=== PATIENT | male | born 1950 | race Caucasian/White ===

== ENCOUNTER 2017-12-08 12:03 | Inpatient (IN) | payer OTHER, MEDICARE ==
[~2017-12-08] VITALS: Ht 167.6 cm; Wt 122.6 kg
[2017-12-08] MEDS ORDERED: ELIQUIS5 MG PO (13:53)
[2017-12-08] MEDS ORDERED: ALLO300 PO (13:53)
[2017-12-08] MEDS ORDERED: ASCO500 PO (13:54)
[2017-12-08] MEDS ORDERED: ASPI81CH PO (13:54)
[2017-12-08] MEDS ORDERED: ATOR40TA PO (13:55)
[2017-12-08] MEDS ORDERED: FINA5 (13:56)
[2017-12-08] MEDS ORDERED: FISH OIL 1,0001 EAC1 PO (13:56)
[2017-12-08] MEDS ORDERED: GABA300 PO (13:57)
[2017-12-08] MEDS ORDERED: FLAX PO (13:57)
[2017-12-08] MEDS ORDERED: HUMULIN N100 UNIT/1 SC (13:59)
[2017-12-08] MEDS ORDERED: Novolog100 UNIT/1 (14:01)
[2017-12-08] MEDS ORDERED: METF500 (14:05)
[2017-12-08] MEDS ORDERED: OXYC5 (14:08)
[2017-12-08] MEDS ORDERED: SERT100 (14:10)
[2017-12-08 14:33] LABS: BASOPHILS ABSOLUTE AUTO 0.04 K/mm3 (0.00-0.23); BASOPHILS PERCENT AUTO 0 % (0-2); EOSINOPHILS ABSOLUTE AUTO 0.01 K/mm3 (0.00-0.68); EOSINOPHILS PERCENT AUTO 0 % (0-6); Hematocrit 45.5 % (37.0-53.0); IMMATURE GRAN ABSOLUTE AUTO 0.07 K/mm3 (0.00-0.10); IMMATURE GRAN PERCENT AUTO 1 % (0-1); LYMPHOCYTES ABSOLUTE AUTO 0.51 K/mm3 (0.84-5.20); LYMPHOCYTES PERCENT AUTO 3 % (21-46); MONOCYTES ABSOLUTE AUTO 0.87 K/mm3 (0.16-1.47); MONOCYTES PERCENT AUTO 6 % (4-13); Mean Corpuscular HGB 28.6 pg (26.0-34.0); Mean Corpuscular Volume 87 fL (80-100); Mean Platelet Volume 9.4 fL (9.1-12.4); NEUTROPHILS ABSOLUTE AUTO 13.38 K/mm3 (1.96-9.15); NEUTROPHILS PERCENT AUTO 90 % (41-73); Platelet Count 250 K/mm3 (150-400); RDW Coefficient Variation 13.6 % (11.7-14.2); RDW Standard Deviation 42.7 fL (35.1-46.3); Red Blood Cell Count 5.24 M/mm3 (4.30-5.90); White Blood Cell Count 14.88 K/mm3 (4.00-11.30)
[2017-12-08 14:45] LABS: International Normalized Ratio 0.96
[2017-12-08 15:45] LABS: Alanine Aminotransfer (ALT/SGP 41 U/L (12-78); Albumin, Blood 3.4 g/dL (3.4-5.0); Albumin/Globulin Ratio 0.8 (0.8-1.8); Alk Phos 278 U/L (50-136); Anion Gap 12 mmol/L (6-16); Aspartate Aminotrans (AST/SGOT 25 U/L (12-37); Bilirubin, Total 0.7 mg/dL (0.1-1.0); Blood Urea Nitrogen 33 mg/dL (8-24); Bun/Creatinine Ratio 33.4 (12.0-20.0); CO2, Blood 16 mmol/L (21-32); Calcium, Blood 8.7 mg/dL (8.5-10.1); Chloride, Blood 103 mmol/L (98-108); Creatinine, Blood 0.99 mg/dL (0.60-1.20); Glomerular Filtration Rate >60 (60-); Glucose, Blood 393 mg/dL (70-99); Sodium, Blood 131 mmol/L (136-145); Total Protein, Blood 7.4 g/dL (6.4-8.2)
[2017-12-08 15:46] LABS: Potassium, Blood 6.5 mmol/L (3.5-5.5)
[2017-12-08] MEDS ORDERED: Humulin N100 UNIT/1 SC (16:51)
[2017-12-08] MEDS ORDERED: LIRA0.6P SC (16:53)
[2017-12-08] MEDS ORDERED: Hair, Skin & N1 EACH PO (16:55)
[2017-12-08] MEDS ORDERED: Cholestyramine R5 GM PO (16:56)
[2017-12-08] MEDS ORDERED: LOPE2C PO (17:01)
[2017-12-08] MEDS ORDERED: TEMA15 PO (17:02)
[2017-12-08 20:48] LABS: Source, Urine Voided
[2017-12-08 20:51] LABS: Blood, Urine Neg (Neg); Glucose Qualitative, Urine 3+ (Neg); Ketones, Urine Neg (Neg); Leukocyte Esterase, Urine 1+ (Neg); Nitrite, Urine Neg (Neg); Protein, Urine 2+ (Neg); Urobilinogen, Urine NORM (Normal)
[2017-12-08 21:09] LABS: Appearance, Urine Clear (Clear); Bilirubin, Urine 1+ (Neg); Color, Urine Yellow (P-Yellow); White Blood Cells, Urine Rare /hpf (0-5)
[2017-12-08 21:10] LABS: Bacteria Rare /hpf; Red Blood Cells, Urine Not Seen /hpf (0-2); Squamous Epithelial Cells Few /hpf (Few)
[2017-12-09 05:41] LABS: Hematocrit 46.1 % (37.0-53.0); Hemoglobin 15.1 g/dL (13.5-17.5); Mean Corpuscular HGB 28.3 pg (26.0-34.0); Mean Corpuscular HGB Conc 32.8 g/dL (31.5-36.5); Mean Corpuscular Volume 86 fL (80-100); Mean Platelet Volume 9.5 fL (9.1-12.4); Platelet Count 260 K/mm3 (150-400); RDW Coefficient Variation 13.6 % (11.7-14.2); RDW Standard Deviation 42.6 fL (35.1-46.3); Red Blood Cell Count 5.34 M/mm3 (4.30-5.90); White Blood Cell Count 6.31 K/mm3 (4.00-11.30)
[2017-12-09 06:13] LABS: Bun/Creatinine Ratio 30.1 (12.0-20.0); Calcium, Blood 8.3 mg/dL (8.5-10.1); Creatinine, Blood 1.53 mg/dL (0.60-1.20)
[2017-12-09 06:14] LABS: BAND PERCENT MAN 26 % (0-8); BASOPHILS PERCENT MAN 0 % (0-2); EOSINOPHILS PERCENT MAN 0 % (0-6); LYMPHOCYTES % ATYPICAL MANUAL 1 % (0-0); LYMPHOCYTES ABSOLUTE MAN 0.25 K/mm3 (0.84-5.20); LYMPHOCYTES PERCENT MAN 3 % (21-46); METAMYELOCYTE ABSOLUTE MAN 0.12 K/mm3 (0.00-0.00); METAMYELOCYTE PERCENT MAN 2 % (0-0); MONOCYTES ABSOLUTE MAN 0.75 K/mm3 (0.16-1.47); MONOCYTES PERCENT MAN 12 % (4-13); NEUTROPHILS ABSOLUTE MAN 5.17 K/mm3 (1.96-9.15); SEG NEUTROPHILS PERCENT MAN 56 % (41-73); TOTAL CELLS COUNTED 100
[2017-12-10 04:38] LABS: BASOPHILS ABSOLUTE AUTO 0.05 K/mm3 (0.00-0.23); BASOPHILS PERCENT AUTO 1 % (0-2); Hematocrit 41.7 % (37.0-53.0); Hemoglobin 13.5 g/dL (13.5-17.5); LYMPHOCYTES ABSOLUTE AUTO 0.37 K/mm3 (0.84-5.20); LYMPHOCYTES PERCENT AUTO 10 % (21-46); MONOCYTES PERCENT AUTO 19 % (4-13); Mean Corpuscular HGB 28.2 pg (26.0-34.0); Mean Corpuscular HGB Conc 32.4 g/dL (31.5-36.5); Mean Corpuscular Volume 87 fL (80-100); Mean Platelet Volume 9.9 fL (9.1-12.4); Platelet Count 230 K/mm3 (150-400); RDW Coefficient Variation 13.7 % (11.7-14.2); RDW Standard Deviation 43.9 fL (35.1-46.3); Red Blood Cell Count 4.78 M/mm3 (4.30-5.90); White Blood Cell Count 3.66 K/mm3 (4.00-11.30)
[2017-12-10 04:42] LABS: EOSINOPHILS ABSOLUTE AUTO 0.11 K/mm3 (0.00-0.68); EOSINOPHILS PERCENT AUTO 3 % (0-6); IMMATURE GRAN ABSOLUTE AUTO 0.05 K/mm3 (0.00-0.10); IMMATURE GRAN PERCENT AUTO 1 % (0-1); NEUTROPHILS ABSOLUTE AUTO 2.38 K/mm3 (1.96-9.15); NEUTROPHILS PERCENT AUTO 65 % (41-73)
[2017-12-10 05:04] LABS: Alanine Aminotransfer (ALT/SGP 30 U/L (12-78); Albumin, Blood 2.8 g/dL (3.4-5.0); Albumin/Globulin Ratio 0.7 (0.8-1.8); Alk Phos 195 U/L (50-136); Anion Gap 9 mmol/L (6-16); Aspartate Aminotrans (AST/SGOT 18 U/L (12-37); Blood Urea Nitrogen 38 mg/dL (8-24); Bun/Creatinine Ratio 35.2 (12.0-20.0); CO2, Blood 22 mmol/L (21-32); Calcium, Blood 8.2 mg/dL (8.5-10.1); Chloride, Blood 111 mmol/L (98-108); Creatinine, Blood 1.08 mg/dL (0.60-1.20); Globulin, Blood 4.1 g/dL (2.2-4.0); Glomerular Filtration Rate >60 (60-); Glucose, Blood 370 mg/dL (70-99); Potassium, Blood 4.6 mmol/L (3.5-5.5); Sodium, Blood 142 mmol/L (136-145); Total Protein, Blood 6.9 g/dL (6.4-8.2)
[2017-12-10 05:57] LABS: BAND PERCENT MAN 48 % (0-8); BASOPHILS PERCENT MAN 0 % (0-2); EOSINOPHILS PERCENT MAN 3 % (0-6); LYMPHOCYTES ABSOLUTE MAN 0.51 K/mm3 (0.84-5.20); LYMPHOCYTES PERCENT MAN 14 % (21-46); METAMYELOCYTE ABSOLUTE MAN 0.18 K/mm3 (0.00-0.00); METAMYELOCYTE PERCENT MAN 5 % (0-0); MONOCYTES PERCENT MAN 22 % (4-13); SEG NEUTROPHILS PERCENT MAN 4 % (41-73); TOTAL CELLS COUNTED 100
[2017-12-10 05:58] LABS: MYELOCYTE ABSOLUTE MAN 0.14 K/mm3 (0.00-0.00); MYELOCYTE PERCENT MAN 4 % (0-0)
== END 2017-12-10 12:30 | disposition short-term general hospital (02) | DRG 394 ==
LOC: ER 12:03 → SURS 14:28 → MEDS 14:28 → SURS 15:16
PROVIDERS: Hospitalist; Internal Medicine; Physician Assistant
PROC: 0D9670Z Drainage of Stomach with Drainage Device, Via Natural or Artificial Opening (ICD-10-PCS; principal; 2017-12-09)
DX: K43.3 Parastomal hernia with obstruction, without gangrene (principal); K94.19 Other complications of enterostomy; E11.40 Type 2 diabetes mellitus with diabetic neuropathy, unspecified; E66.01 Morbid (severe) obesity due to excess calories; I48.91 Unspecified atrial fibrillation; E87.5 Hyperkalemia; Z68.41 Body mass index [BMI] 40.0-44.9, adult; E78.5 Hyperlipidemia, unspecified; I10 Essential (primary) hypertension; Z88.2 Allergy status to sulfonamides; Z85.038 Personal history of other malignant neoplasm of large intestine; Z79.84 Long term (current) use of oral hypoglycemic drugs; Z79.4 Long term (current) use of insulin; Z79.01 Long term (current) use of anticoagulants; Y83.9 Surgical procedure, unspecified as the cause of abnormal reaction of the patient, or of later complication, without mention of misadventure at the time of the procedure
CPT/HCPCS: 36415; 74018; 80048; 80051; 80053; 81001; 82947; 83605; 85025; 85610; 87040; 87077; 87086; 87186; 94762; 99285; J0610; J1650; J1815; J2405; J2765; J3010; J3480; J7030

== ENCOUNTER 2021-06-05 17:21 | Inpatient (IN) | payer OTHER, MEDICARE ==
[~2021-06-05] VITALS: Ht 182.9 cm; Wt 70.6 kg
[~2021-06-05 17:21] MED LIST: ALLO300 PO; ASCO500 PO; ASPI81CH PO; ATOR40TA PO; Cholestyramine R5 GM PO; ELIQUIS5 MG PO; FINA5; FISH OIL 1,0001 EAC1 PO; FLAX PO; GABA300 PO; HUMULIN N100 UNIT/1 SC; Hair, Skin & N1 EACH PO; Humulin N100 UNIT/1 SC; LIRA0.6P SC; LOPE2C PO; METF500; Novolog100 UNIT/1; OXYC5; SERT100; TEMA15 PO
[2021-06-05 17:50] LABS: BASOPHILS ABSOLUTE AUTO 0.05 K/mm3 (0.00-0.23); BASOPHILS PERCENT AUTO 0 % (0-2); EOSINOPHILS ABSOLUTE AUTO 0.01 K/mm3 (0.00-0.68); EOSINOPHILS PERCENT AUTO 0 % (0-6); Hematocrit 35.7 % (37.0-53.0); Hemoglobin 10.8 g/dL (13.5-17.5); IMMATURE GRAN PERCENT AUTO 1 % (0-1); LYMPHOCYTES ABSOLUTE AUTO 0.51 K/mm3 (0.84-5.20); LYMPHOCYTES PERCENT AUTO 3 % (21-46); MONOCYTES ABSOLUTE AUTO 0.78 K/mm3 (0.16-1.47); MONOCYTES PERCENT AUTO 5 % (4-13); Mean Corpuscular HGB 27.1 pg (26.0-34.0); Mean Corpuscular HGB Conc 30.3 g/dL (31.5-36.5); Mean Corpuscular Volume 90 fL (80-100); Mean Platelet Volume 10.4 fL (9.1-12.4); NEUTROPHILS PERCENT AUTO 91 % (41-73); Platelet Count 306 K/mm3 (150-400); RDW Coefficient Variation 15.2 % (11.7-14.2); RDW Standard Deviation 49.5 fL (35.1-46.3); Red Blood Cell Count 3.99 M/mm3 (4.30-5.90); White Blood Cell Count 17.05 K/mm3 (4.00-11.30)
[2021-06-05 17:55] LABS: Source, Urine Catheter
[2021-06-05 17:59] LABS: Appearance, Urine Cloudy (Clear); Bilirubin, Urine Neg (Neg); Blood, Urine 4+ (Neg); Glucose Qualitative, Urine 4+ (Neg); Ketones, Urine 3+ (Neg); Leukocyte Esterase, Urine Neg (Neg); Nitrite, Urine Neg (Neg); Protein, Urine 2+ (Neg); Urobilinogen, Urine NORM (Normal)
[2021-06-05 18:09] LABS: Color, Urine Pale Yellow (P-Yellow)
[2021-06-05 18:12] LABS: Amorphous Mod (0-Heavy); Bacteria Mod /hpf; Red Blood Cells, Urine 25-50 /hpf (0-2); Squamous Epithelial Cells Rare /hpf (Few); White Blood Cells, Urine 0-2 /hpf (0-5)
[2021-06-05 18:18] LABS: Magnesium, Blood 2.2 mg/dL (1.6-2.4)
[2021-06-05 18:24] LABS: Beta-hydroxybutyrate 118.2 mg/dL (0.2-2.8)
[2021-06-05 18:32] LABS: Base Excess Venous -22.6 mmol/L; Bicarbonate Venous 9.7 mmol/L (24.0-30.0); PCO2 Venous 16.8 mmHg (38-42); PO2 Venous 114 mmHg (38-42); pH Blood Venous 7.16 (7.34-7.37)
[2021-06-05 18:40] LABS: Alanine Aminotransfer (ALT/SGP 30 U/L (12-78); Albumin, Blood 3.2 g/dL (3.4-5.0); Albumin/Globulin Ratio 0.8 (0.8-1.8); Alk Phos 379 U/L (50-136); Anion Gap 28 mmol/L (6-16); Aspartate Aminotrans (AST/SGOT 26 U/L (12-37); Bilirubin, Total 0.6 mg/dL (0.1-1.0); Blood Urea Nitrogen 39 mg/dL (8-24); Bun/Creatinine Ratio 33.9 (12.0-20.0); CO2, Blood 7 mmol/L (21-32); Calcium, Blood 9.5 mg/dL (8.5-10.1); Chloride, Blood 103 mmol/L (98-108); Creatinine, Blood 1.15 mg/dL (0.60-1.20); Glomerular Filtration Rate >60 (60-); Glucose, Blood 1011 mg/dL (70-99); Potassium, Blood 5.8 mmol/L (3.5-5.5); Sodium, Blood 138 mmol/L (136-145); Total Protein, Blood 7.2 g/dL (6.4-8.2)
[2021-06-05] MEDS ORDERED: Aspir 8181 MG PO (19:32)
[2021-06-05] MEDS ORDERED: FINA5 PO (19:32)
[2021-06-05] MEDS ORDERED: SERT100 PO (19:33)
[2021-06-05] MEDS ORDERED: NEURONTIN600 MG PO (19:33)
[2021-06-05] MEDS ORDERED: METF500C PO (19:33)
[2021-06-05 20:12] LABS: Glucose, Blood 1007 mg/dL (70-99)
[2021-06-05 21:55] LABS: Bun/Creatinine Ratio 32.8 (12.0-20.0); Calcium, Blood 8.6 mg/dL (8.5-10.1); Creatinine, Blood 1.28 mg/dL (0.60-1.20)
[2021-06-05 21:57] LABS: Glucose, Blood 823 mg/dL (70-99)
[2021-06-05 22:53] LABS: Glucose, Blood 786 mg/dL (70-99)
[2021-06-05 23:36] LABS: PCO2 Arterial 26.9 mmHg (35-45); pH Blood Arterial 7.35 (7.35-7.45)
[2021-06-06 00:34] LABS: Glucose, Blood 692 mg/dL (70-99)
[2021-06-06 01:28] LABS: Glucose, Blood 678 mg/dL (70-99)
[2021-06-06 02:46] LABS: Glucose, Blood 654 mg/dL (70-99)
[2021-06-06 03:47] LABS: Anion Gap 11 mmol/L (6-16); Blood Urea Nitrogen 34 mg/dL (8-24); Bun/Creatinine Ratio 32.1 (12.0-20.0); CO2, Blood 24 mmol/L (21-32); Chloride, Blood 115 mmol/L (98-108); Creatinine, Blood 1.06 mg/dL (0.60-1.20); Glomerular Filtration Rate >60 (60-); Glucose, Blood 557 mg/dL (70-99); Potassium, Blood 3.2 mmol/L (3.5-5.5); Sodium, Blood 150 mmol/L (136-145)
[2021-06-06 09:38] LABS: Albumin, Blood 2.6 g/dL (3.4-5.0); Anion Gap 9 mmol/L (6-16); Blood Urea Nitrogen 31 mg/dL (8-24); Bun/Creatinine Ratio 34.9 (12.0-20.0); CO2, Blood 27 mmol/L (21-32); Calcium, Blood 8.9 mg/dL (8.5-10.1); Chloride, Blood 117 mmol/L (98-108); Creatinine, Blood 0.89 mg/dL (0.60-1.20); Glomerular Filtration Rate >60 (60-); Glucose, Blood 259 mg/dL (70-99); Phosphorus, Blood 2.2 mg/dL (2.5-4.9); Potassium, Blood 3.2 mmol/L (3.5-5.5); Sodium, Blood 153 mmol/L (136-145)
[2021-06-06 09:41] LABS: BASOPHILS ABSOLUTE AUTO 0.02 K/mm3 (0.00-0.23); BASOPHILS PERCENT AUTO 0 % (0-2); EOSINOPHILS ABSOLUTE AUTO 0.01 K/mm3 (0.00-0.68); EOSINOPHILS PERCENT AUTO 0 % (0-6); Hematocrit 30.9 % (37.0-53.0); Hemoglobin 9.7 g/dL (13.5-17.5); IMMATURE GRAN ABSOLUTE AUTO 0.09 K/mm3 (0.00-0.10); IMMATURE GRAN PERCENT AUTO 1 % (0-1); LYMPHOCYTES ABSOLUTE AUTO 0.73 K/mm3 (0.84-5.20); LYMPHOCYTES PERCENT AUTO 5 % (21-46); MONOCYTES ABSOLUTE AUTO 1.44 K/mm3 (0.16-1.47); MONOCYTES PERCENT AUTO 10 % (4-13); Mean Corpuscular HGB 26.3 pg (26.0-34.0); Mean Corpuscular HGB Conc 31.4 g/dL (31.5-36.5); Mean Platelet Volume 10.2 fL (9.1-12.4); NEUTROPHILS ABSOLUTE AUTO 12.67 K/mm3 (1.96-9.15); NEUTROPHILS PERCENT AUTO 85 % (41-73); Platelet Count 190 K/mm3 (150-400); RDW Standard Deviation 45.5 fL (35.1-46.3); Red Blood Cell Count 3.69 M/mm3 (4.30-5.90); White Blood Cell Count 14.96 K/mm3 (4.00-11.30)
[2021-06-06 09:42] LABS: Mean Corpuscular Volume 84 fL (80-100)
--- NOTE | 2021-06-06 12:43 | NUR ---
Call received for Farzad, currently in ER17. Chart reviewed and found AD with medical surrogate decision makers of his brother MELLO and sister Emerson, who both live on the [facility]. Review of records, spoke with [facility] RN, Adilene and spoke with pt's Brother, eMllo. Pt is nonverbal at baseline. He appears uncomfortable on the gurney and sl anxious. He has his eyes open and tracks, makes eye contact for short periods before closing them again. Farzad was transferred from to our ER due to decreased LOC, and was found in DKA, BS>1000, hyponatremia, hypokalemia, fever, pneumonia. He was tested for covid and had a negative result. Per pt's brother and [facility] RN Adilene, pt had been on hospice at [facility] unit. Brother thought Farzad was still on hospice and confirms the goals of care are comfort. He states his brother has been battling colon cancer and he understood it was no longer treatable and that it had spread to the liver, other organs and maybe the lungs. He reports his brother is a victim of angent orange exposure and is 90% service connected due to that. He states that has been the source of his cancers. When discussing current goals of care and specifically if Farzad/Mello would want cont treatment of pneumonia with IV antibiotics, Mello states, they would like him to return to [facility] with hospice and treatment for comfort. They do not want to continue IV antibiotics for the pneumonia. Mello does not have an agency of choice for hospice and would like which ever of the three availabale could see his brother the earliest. Update given to , ANDRES and CM in ER. Transition Of Care Specialist asked if he could go see pt in ER. VO for comfort care obtained from and entered in [employer]. Orders reviewed with RN and I recommended pt be given lowest dose of Roxanol when possible for his nonverbal indicators of pain and dyspnea.
--- NOTE | 2021-06-06 12:58 | NUR ---
Call back rounds- [facility] requested visit with pt. Pt was minimally responsive. I asked, "Do you have any children?" Pt weakly responded with "2 boys." Pt also responded to question about siblings - "3 brothers." When asked about his service he said "[place]." Pt said nothing else during visit. For remainder of the visit, PC provided presence and solo conversation to pt. Assurance of family support extended as well.
--- NOTE | 2021-06-06 16:54 | NUR ---
FAMILY CONTACT for updates is luiserSRIRAM [phone]. Please contact him with any changes, transfers to floor or back to [facility] facility.
[2021-06-06] MEDS ORDERED: Acetaminophen650 M1 PO (18:51)
[2021-06-06] MEDS ORDERED: SENN187 PO (18:52)
[2021-06-06] MEDS ORDERED: ONDA4 PO (18:52)
--- NOTE | 2021-06-07 04:50 | NUR ---
SUMMARY: PT REMAINS ON COMFORT MEASURES W/O S/S DISTRESS AND NO PRN'S REQUIRED THIS SHIFT. HE'S MOSTLY NONVERBAL AND IS WAKEFUL DURING CARE/ADL'S BUT SLEPT MAJORITY OF NOCTE. TURN SCHEDULE MAINTAINED. FUENTES IS PATENT/DRAINING. ATTENDS CHANGED FOR STOOL INCONTINENCE. MOUTH CARE PROVIDED PRN. NO ACUTE CHANGES. WCTM AND REPORT TO DAY RN.
--- NOTE | 2021-06-07 08:36 | NUR ---
COMFORT ASSESSMENT HELD PATIENTS HAND. PATIENT ABLE TO SQUEEZE MY HAND AND COMMUNICATE MINIMALLY. PATIENT MEDICATED PER EMAR FOR PAIN. PATIENT REPOSITIONED. SAT WITH PATIENT FOR 15 MINUTES.
--- NOTE | 2021-06-07 08:45 | NUR ---
COMFORT CARE VISIT, UPDATE TO SRIRAM OWEN [phone] & CASE CONF WITH RN, , CM. rounding upon my arrival. Pt appears mostly comfortable but work of breathing increased and resp rate is 48/min. Peterson cath to drainage with minimal cl yellow urine noted in back. Pt is warm to touch, skin dry. He has his eyes open but does not make eye contact or respond to voice or touch. Discussed medications for increased work of breathing with RN and . RN to administer lowest dose of Roxinol prn per eMAR. t/c to pt's Brothmarti Sarkar with an update on status and plans. EMR reviewed and ER CM note shared with RN and brother re: [facility] or if possible with f/u hospice care. Pt appears to be progressing in dying process. Will reassess again in am and speak with CM re: transfer potential. VM left for CM department re: same.
--- NOTE | 2021-06-07 11:15 | NUR ---
F/U Comfort care visit. Pt had just had a bedbath and appears more comfortable. RR down to 36/min, still elevated but improved. Will cont to visit/monitor for s/s management and support.
--- NOTE | 2021-06-07 15:58 | NUR ---
CALLED TO ROOM BY JOSIAH BAZAN, STATING PATIENT WAS NOT BREATHING. CHECKED FOR PULSE AND RESPIRATIONS. TIME OF WAS 1543. PATIENT WAS A DNR AND ON COMFORT CARE. NOTIFIED BROTHER, SRIRAM. NOTIFIED DR. ALEXANDRE. CHARGE NURSE, GALLITO FISHER. PER SRIRAM, PATIENT TO BE CREMATED, NO SPECIFIC HOME.
== END 2021-06-07 15:43 | DRG 871 ==
LOC: ER 17:21 → ERHOLD 19:32 → MEDS 06-06 18:38
PROVIDERS: Emergency Medicine; Family Medicine; ADMIT Internal Medicine
DX: A41.9 Sepsis, unspecified organism (principal); E11.10 Type 2 diabetes mellitus with ketoacidosis without coma; R65.21 Severe sepsis with septic shock; J18.9 Pneumonia, unspecified organism; G92 Toxic encephalopathy; E87.0 Hyperosmolality and hypernatremia; Z66 Do not resuscitate; Z51.5 Encounter for palliative care; Z20.822 Contact with and (suspected) exposure to COVID-19; E87.6 Hypokalemia; D64.9 Anemia, unspecified; I10 Essential (primary) hypertension; E78.00 Pure hypercholesterolemia, unspecified; E87.5 Hyperkalemia; N40.0 Benign prostatic hyperplasia without lower urinary tract symptoms; Z88.2 Allergy status to sulfonamides; Z98.890 Other specified postprocedural states; Z85.038 Personal history of other malignant neoplasm of large intestine; Z93.2 Ileostomy status; Z79.01 Long term (current) use of anticoagulants; Z79.899 Other long term (current) drug therapy; Z79.4 Long term (current) use of insulin; Z79.82 Long term (current) use of aspirin
CPT/HCPCS: 36415; 36600; 51701; 51702; 70450; 71045; 80048; 80053; 80069; 81001; 82010; 82803; 82947; 83605; 83690; 83735; 84145; 85025; 87040; 87077; 87086; 87186; 93005; 93010; 96365-59; 96367-59; 96372; 96375-59; 96376-59; 99285-25; A9270; J0456; J0696; J1650; J1815; J7030; J7042; J7050; J7060; J7120